=== PATIENT | male | born 1975 | race Caucasian/White ===

== ENCOUNTER 2017-05-09 06:57 | Emergency (ER) | payer OTHER ==
[~2017-05-09] VITALS: Ht 167.6 cm; Wt 68.0 kg
[~2017-05-09 06:57] MED LIST: CLN150C PO; FLUC150T PO; HYDR-34 PO; HYDR-3456 PO; METH4TAB PO; SULF1TAB35 PO
--- NOTE | 2017-05-09 07:46 | ED Integumentary General ---
General Chief Complaint: Skin/Wound Problems Stated Complaint: LEFT BACK OF CALF-BUG BITE,LYMPNOD SWOLLEN Nursing Triage Note: AMB TO ROOM REPORTS ON WED PULLED POSSIBLE OUT OF L CALF. TODAY NOTICED THAT LYMPTH NODE TO L GROIN SWOLLEN Source: patient Exam Limitations: no limitations History of Present Illness Time seen by provider: 07:36 Initial Comments Patient brought himself the ER with concern of a left inguinal lump cane over the last 2-3 days progressively worsening and started after he had a tick bite on his left lower leg there is removed approximately 5 days ago. He thinks the tick was alone started. He had a redness and raised swelling area immediately around the tick bite for about a day but no other rash, fever, chills, nausea, weight loss, shortness of breath. Lump in his left groin feels like a bruise he got this before after he had cellulitis in one of his legs when he was in the [employer] he had a large lymph node at the time time but felt like this. He states this never opened it is not draining it is not red. He does have some tinea cruris in his right and when him that he is treating with topical antifungals. He denies ever having an STI. He is sexually active with his , monogamous. He has no discharge or dysuria. Allergies and Home Medications Allergies Coded Allergies: No Known Drug Allergies (Unverified , 07/11/12) Constitutional: see HPI, No chills, No fever, No malaise, No weight loss EENTM: no symptoms reported, No nose congestion Respiratory: No cough, No short of breath Cardiovascular: No chest pain, No edema Gastrointestinal: No abdominal pain, No constipation, No diarrhea Genitourinary: No dysuria, No frequency Musculoskeletal: No back pain, No joint pain Skin: see HPI, No pruritus, No rash Psychiatric/Neurological: Denies Headache, Denies Paresthesia Endocrine: Denies Intolerance to Cold, Denies Intolerance to Heat, Denies Increased Hunger, Denies Increased Thrist Past Apztjtx-Jfxizr-Dibwuf Hx Patient Social History Alcohol Use: Occasionally Uses Recreational Drug Use: No Smoking Status: Never a Smoker Recent Foreign Travel: No Contact w/Someone Who Travel: No Recent Infectious Disease Expo: No Recent Hopitalizations: No Immunizations Up To Date Tetanus Booster (TDap): More than 5yrs PED Vaccines UTD: Yes Surgeries HX Surgeries: Yes (UMBILICAL HERNIA REPAIR) Respiratory Hx Respiratory Disorders: No Cardiovascular Hx Cardiac Disorders: No Neurological Hx Neurological Disorders: Yes (6TH NERVE PALSY ABOUT 2 YRS AGO, WENT AWAY) Reproductive System Hx Reproductive Disorders: No Genitourinary Hx Genitourinary Disorders: No Gastrointestinal Hx Gastrointestinal Disorders: Yes (UMBILICAL HERNIA) Musculoskeletal Hx Musculoskeletal Disorders: No Endocrine Hx Endocrine Disorders: No HEENT HX ENT Disorders: No Cancer Hx Cancer: No Psychosocial Hx Psychiatric Problems: No Integumentary HX Skin/Integumentary Disorder: Yes (ATHLETES FOOT ) Blood Transfusions Hx Blood Disorders: No Adverse Reaction to a Blood Tr: No Family Medical History Family Medial History: Dementia 03 FATHER Family history: Diabetes mellitus GRANDFATHER Family history: Hypertension No Family History of: Cancer Family history: Cardiovascular disease Physical Exam Vital Signs Vital Sign - Last 12Hours 05/09/17 07:03 Temp 98.0 Pulse 82 Resp 18 B/P (MAP) 122/83 O2 Delivery Room Air Capillary Refill : Less Than 3 Seconds General Appearance: WD/WN, no apparent distress Neck: full range of motion, normal inspection Cardiovascular: normal peripheral pulses, regular rate, rhythm, no edema Respiratory: chest non-tender, normal breath sounds Skin: normal color, warm/dry, other (red healing 0.5 cm lesion on the posterior calf of his left leg that is flat without discharge.) Lymphatic: inguinal node tender (L) (solitary smooth mildly tender mobile soft rubbery 1 x 0.5 cm lymph node in the left inguinal) Progress/Results/Core Measures Results/Orders Vital Signs/I&O Vital Sign - Last 12Hours 05/09/17 07:03 Temp 98.0 Pulse 82 Resp 18 B/P (MAP) 122/83 O2 Delivery Room Air Blood Pressure Mean: 96 Departure Impression Impression: Primary Impression: Lymphadenopathy, inguinal Additional Impression: Tinea cruris Disposition: 01 HOME, SELF-CARE Condition: Stable Departure-Patient Inst. Decision time for Depature: 07:47 Referrals: FLOR SALAZAR MD (PCP/Family) Primary Care Physician Patient Instructions: LYMPH NODE SWELLING Add. Discharge Instructions: You have a single lymph node that is swollen that could be reactive from either the docs itch or the area where you had a bug bite on her left calf. You should continue to treat your jock itch with topical antifungals such as Lamisil daily and keep it clean and dry. Keep an eye on your bug bite and if it starts to develop a large red rash around it or you're having a lot of itching, or other worrisome symptoms then you should tile picker and start the antibiotics and go see your primary care physician. If you're having worrisome symptoms such as nausea vomiting fevers chills and antibiotics are not helping you may return to the ER or go to your primary care physician which ever is appropriate. If you take the antibiotics you should wear long sleeve shirts, sunscreen and a wide brim hat as sun exposure can cause an irritating burning rash. You should also take the medicine least 30 minutes prior to eating anything. All discharge instructions reviewed with patient and/or family. Voiced understanding. Scripts Doxycycline Hyclate (Doxycycline Hyclate) 100 Mg Tablet 100 MG PO BID for 10 Days, #20 TAB 0 Refills Prov: ALFONZO COLE 05/09/17 Copy Copies To 1: FLOR SALAZAR MD, TITUS J May 09, 2017 07:46
[2017-05-09] MEDS ORDERED: DOXY100T2 PO (07:51)
[2017-05-09 07:54] VITALS: BP 122/83
== END 2017-05-09 07:54 | disposition home or self-care (01) ==
LOC: EDUNIT# 06:57 → ER 07:01
DX: R59.0 Localized enlarged lymph nodes (principal); B35.6 Tinea cruris
CPT/HCPCS: 99282

== ENCOUNTER → 2022-02-11 | Outpatient (CLI) | payer BC ==
[~2022-02-11] MED LIST changes: +DOXY100T2 PO; +GADOTERATE 0.5 MMOL/ML (CLARISCAN) 15 ML VIAL IV ONE; -SULF1TAB35 PO; +SULF1TAB38 PO
--- NOTE | 2022-02-11 13:01 | Diagnostic Imaging Report ---
CLINICAL INDICATION: Patient with sudden vision loss left eye. Patient is colon band and frosty glass vision. EXAM: MRI of the brain and orbits performed without and with 50 mL of Clariscan IV contrast. Multiplanar multisequence imaging is obtained. COMPARISON: MRI of the brain with and without contrast dated 01/03/2011. FINDINGS: There is overall interval significant progression of multiple focal and ovoid areas of high T2 signal involving the subcortical, deep white matter, periventricular and septal callosal regions of both cerebral hemispheres. There are at least 7 enhancing lesions involving both the white matter both cerebral hemispheres. There is interval development of amorphous enhancement involving the similar-sized 11 mm high T2 signal lesion in the posterior left frontal lobe lee radiata region seen on series 6, image 9. This is the largest lesion which demonstrates enhancement. This lesion also demonstrates elevated DWI signal with T2 shine through. There are other smaller areas of elevated DWI signal and T2 shine through involving both cerebral hemispheres which has slightly increased in interim. Previously seen areas of increased T2 signal involving the yarelis on the axial T2 sequence is not seen on today's exam. There is interval development of a 5 mm area of high T2 signal involving left cerebellum. Stable small area of high T2 signal involving the right cerebellum. There is interval development of a small area of high T2 signal involving the medial aspect of left brachium pontis. The brain parenchymal volume appears appropriate for patient's age and is not significantly changed in interim. There is no brain herniation or midline shift. No intracranial hemorrhage. There is no hydrocephalus. Visualized red cliff of Moore vascular structures are unremarkable. There is enhancement and increased T2 signal involving the right optic nerve in the region of the optic canal and intraorbital region. This finding is new compared to the prior study. The extracranial soft tissue, skull, and orbits are unremarkable. There is mild mucosal thickening involving ethmoid sinus and both maxillary sinuses. There is minimal fluid in both mastoid air cells. IMPRESSION: 1: There is interval progression of multiple focal and ovoid areas of high T2 signal throughout the white matter in both cerebral hemispheres and bilateral cerebellar hemispheres. There is interval development of several areas of associated enhancement and areas of elevated DWI and T2 shine through. These findings are concerning for active demyelinating plaques. There are at least 7 new areas of enhancement concerning for active demyelinating plaques. 2: There is interval development of enhancement and high T2 signal involving the right optic nerve in the region of the optic canal and intraorbital region consistent with optic neuritis. 3: Previously seen small amount of increased T2 signal involving the yarelis has resolved. Dictated by: Dictated on workstation # [id number]
== END ==
LOC: RAD 08:00
PROVIDERS: ATTEND Optometrist
DX: H47.10 Unspecified papilledema (principal); H53.132 Sudden visual loss, left eye
CPT/HCPCS: 70553